=== PATIENT | female | born 1980 | race African-American/Black ===

== ENCOUNTER 2017-04-14 07:13 | Emergency (ER) | payer BC, SELFPAY ==
[2017-04-14] MEDS ORDERED: Ondansetron HCl/PF 4 MG/2 ML Vial ONE (07:44)
[2017-04-14] MEDS ORDERED: Ketorolac Tromethamine 30 MG/ML VIAL ONE (07:45)
[2017-04-14] MEDS ORDERED: Fentanyl 100 MCG/2 ML VIAL ONE (07:45)
[2017-04-14 08:15] LABS: Anion Gap 16 mmol/L (10-20); BUN (Urea Nitrogen) 8 mg/dL (7.0-18.7); Calc. Creatinine Clearance 0 mL/min (70-130); Calcium 9.3 mg/dL (7.8-10.44); Carbon Dioxide 22 mmol/L (22-29); Chloride 106 mmol/L (98-107); Estimated GFR-MDRD 89; Glucose 147 mg/dL (70-105); Potassium 3.8 mmol/L (3.5-5.1); Sodium 140 mmol/L (136-145)
[2017-04-14] MEDS ORDERED: Sodium Chloride 0.9% 1,000 ML ONE (08:16)
[2017-04-14 08:20] LABS: #Basophils 0.1 thou/uL (0.0-0.2); #Eosinphils 0.1 thou/uL (0.0-0.7); #Lymphocytes 2.7 thou/uL (1.20-3.40); #Monocytes 0.5 thou/uL (0.11-0.59); #Neutrophils 2.9 thou/uL (1.40-6.50); %Basophils 1.4 % (0.0-1.0); %Eosinophils 1.9 % (0.0-10.0); %Lymphocytes 42.9 % (21.0-51.0); %Monocytes 7.4 % (0.0-10.0); %Neutrophils 46.3 % (42.0-75.0); Hemoglobin 13.2 g/dL (12.0-16.0); Mean Corpuscular HGB CONC 30.9 g/dL (32.0-36.0); Mean Corpuscular Hemoglobin 24.1 pg (27.0-31.0); Platelet Count 205 thou/uL (130-400); RBC Distribution Width 14.1 % (11.5-14.5); Red Blood Cell (RBC) Count 5.46 mill/uL (4.20-5.40); White Blood Cell (WBC) Count 6.2 thou/uL (4.8-10.8)
[2017-04-14 08:21] LABS: Anisocytosis SLIGHT = 6-15 cells (100X) (0-5/hpf); MDiff Complete? YES; Microcytosis SLIGHT = 6-15 cells (100X) (0-5/hpf); PLT Morphology Comment Appears Adequate
[2017-04-14 08:54] LABS: Bilirubin Negative (Negative); Blood, Urine Trace (Negative); Clarity Clear (Clear); Glucose, Urine (Dipstick) Negative (Negative); Leukocyte Negative (Negative); Nitrite Negative (Negative); Protein, Urine (Dipstick) Negative (Neg-Trace); Urobilinogen 0.2 mg/dL (0.2-1.0)
[2017-04-14 09:00] LABS: Pregnancy Test - Urine (BHCG) Negative (NEGATIVE); Pregu Control Background? CLEAR/WHITE (CLR/WHITE); Pregu Control Bar Appear? YES (CONTROL BAR); Specific Gravity 1.009 (1.002-1.036); Specific Gravity, Urine 1.009 (1.002-1.036)
[2017-04-14 09:07] LABS: RBC/HPF 0-3 HPF (0-3)
[2017-04-14 09:08] LABS: Bacteria/HPF Rare-Few HPF (None Seen); Other Microscopic Description NO; WBC/HPF None Seen HPF (0-3)
--- NOTE | 2017-04-14 09:21 | CT ---
CT ABDOMEN AND PELVIS NONCONTRAST: Date: 04/14/17 No prior comparison. HISTORY: Pain. FINDINGS: No consolidation at the imaged lung bases. There is no urolithiasis or obstructive uropathy. Moderat e distention of the gallbladder is present. Bowel is incompletely characterized without the presence of IV or enteric contrast. No free air. There are colonic diverticula. Osseous structures are intac t. There is nonvisualization of the uterus with fat stranding of the pelvis. Stranding could relate to postsurgical change. No localizable, drainable fluid collection, however, identified on the basis of noncontrast imaging. IMPRESSION: 1. No urolithiasis or obstructive uropathy. 2. Moderate distention of the gallbladder. As clinically necessary, this could be further evaluated with dedicated gallbladder ultrasound. POS: [facility]
== END 2017-04-14 09:25 | disposition home or self-care (01) ==
LOC: NAV ERS 07:13
DX: K80.50 Calculus of bile duct without cholangitis or cholecystitis without obstruction (principal)
CPT/HCPCS: 74176; 80048; 81003; 81015; 81025; 82150; 85025; 96361; 96374; 96375; J1885; J2405; J3010; J7050